=== PATIENT | female | born 1945 | race American Indian/Alaskan Native ===

== ENCOUNTER 2018-01-18 09:13 | Outpatient (CLI) | payer MEDICARE ==
--- NOTE | 2018-01-18 12:13 | Mammography Report ---
Bilateral diagnostic mammogram followed by sonogram left breast: Compared to 01/16/17 and 01/14/16. CAD study utilized. 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 Pain left breast. Findings: Heterogeneous breast parenchyma bilaterally. Left breast smaller compared to right status post previous surgery. Scattered benign calcifications. There is slight increase in skin thickening noted at the site of biopsy. No significant change in the scar tissue. There is a new circumscribed density identified in the left axilla adjacent to the scar. No microcalcifications of the breast parenchyma. Sonographic examination reveals irregular hypoechoic area of breast tissue with acoustic shadowing at 11:00 position 7 cm from nipple measuring 0.5 cm in transverse diameter. At the left axilla benign appearing lymph node noted measuring 1.1 cm in diameter. Impression: Hypoechoic area with acoustic shadowing left breast 11:00 position highly suspicious of a neoplasm. Focal new 3 mm dense asymmetry left lower axilla indeterminate. With history of left breast cancer recommend MRI study first before biopsy of hypoechoic area. BI-RADS CATEGORY: 4 = Suspicious ACR BI-RADS MAMMOGRAPHIC CODES: 0 = Needs additional imaging evaluation; 1 = Negative; 2 = Benign; 3 = Probably benign; 4 = Suspicious; 5 = Malignant; 6 = Known biopsy-proven malignancy COMMENT: 1. Dense breast tissue, i.e., adenosis, fibrocystic changes, etc., may obscure an underlying neoplasm. 2. Approximately 10% of cancers are not detected with mammography. 3. A negative mammography report should not delay biopsy if a clinically suspicious mass is present. COMMENT: Patient follow-up letters are generated in [employer]. Stacia BRICE was informed of the findings at 12:02 PM on 01/18/18.
== END 2018-01-18 09:14 | disposition home or self-care (01) ==
LOC: SPVWC 09:13
PROVIDERS: ATTEND Internal Medicine Hematology & Oncology
DX: C50.412 Malignant neoplasm of upper-outer quadrant of left female breast (principal); R92.1 Mammographic calcification found on diagnostic imaging of breast; Z85.3 Personal history of malignant neoplasm of breast
CPT/HCPCS: 77066

== ENCOUNTER 2019-01-19 10:32 | Outpatient (CLI) | payer MEDICARE ==
--- NOTE | 2019-01-19 15:49 | Mammography Report ---
BILATERAL DIGITAL SCREENING MAMMOGRAM WITH CAD: 01/19/19 10:32:00 CLINICAL: Routine screening.Breast cancer survivor status post left partial mastectomy with radiation therapy. She has a history of left breast pain. COMPARISON:01/18/18 screening mammogram and 02/05/18 breast MRI FINDINGS: The breasts are heterogeneously dense, which may obscure small masses. The left breast is smaller than the right Stable left upper outer postsurgical scar. Bilateral benign calcifications. No mass, suspicious architectural distortion or suspicious calcifications. IMPRESSION: No mammographic evidence of malignancy. BI-RADS CATEGORY: 2 -- Benign RECOMMENDATION: Routine mammographic screening in one year. COMMENT: Patient follow-up letters are generated via our [employer] application.
== END 2019-01-19 10:33 | disposition home or self-care (01) ==
LOC: SPVWC 10:32
PROVIDERS: ATTEND Internal Medicine Hematology & Oncology
DX: Z12.31 Encounter for screening mammogram for malignant neoplasm of breast (principal)
CPT/HCPCS: 77067

== ENCOUNTER 2019-10-04 12:49 | Outpatient (CLI) | payer MEDICARE ==
--- NOTE | 2019-10-04 14:13 | Ultrasound Report ---
LEFT DIGITAL DIAGNOSTIC MAMMOGRAM WITH CAD -- 10/04/2019 LEFT COMPLETE BREAST ULTRASOUND INDICATION: History of left breast cancer status post partial mastectomy and radiation therapy. Chron ic left breast pain. TECHNIQUE: Digital left mammographic imaging was performed. This examination was interpreted with michelle argueta benefit of Computer-Aided Detection (CAD) analysis. COMPARISON: 01/19/2019 FINDINGS: Breast Density: The breasts are heterogeneously dense, which may obscure small masses. MAMMOGRAPHIC FINDINGS: There is no evidence of dominant mass, suspicious calcifications or architectu ral distortion in either breast. Full upper benign postsurgical scar. Stable skin thickening of the b reast. ULTRASOUND FINDINGS: Complete sonographic evaluation of all 4 quadrants and retroareolar region was p erformed. No mass, cyst or suspicious shadowing. IMPRESSION: Negative mammogram and negative left breast ultrasound. No explanation for pain. Follow up recommendation: Routine yearly BI-RADS Category 2: Benign. A "normal" or negative report should not discourage follow up or biopsy of a clinically significant f inding. A written summary of these findings will be mailed to the patient. The patient will be entered into a mammography reporting system which will generate a reminder letter for the patient's next appointmen t at the appropriate interval. According to the [employer], yearly mammograms are recommended starting at age 40 and continuing as long as a woman is in good health. Breast MRI is recommended for women with an jen roximately 20-25% or greater lifetime risk of breast cancer, including women with a strong family his tory of breast or ovarian cancer and women who have been treated for Hodgkin's disease. Signer Name: Marco A Wilson MD Signed: 10/04/2019 2:08 PM Workstation Name: [id number]
== END 2019-10-04 12:50 | disposition home or self-care (01) ==
LOC: SPVWC 12:49
PROVIDERS: ATTEND Internal Medicine Hematology & Oncology
DX: C50.412 Malignant neoplasm of upper-outer quadrant of left female breast (principal); R52 Pain, unspecified

== ENCOUNTER 2020-08-14 09:51 | Outpatient (CLI) | payer MEDICARE | END 2020-08-14 09:52 | disposition home or self-care (01) | LOC: SPVWC 09:51 | PROVIDERS: ATTEND Internal Medicine Hematology & Oncology | DX: C50.412 Malignant neoplasm of upper-outer quadrant of left female breast (principal); R52 Pain, unspecified | CPT/HCPCS: 77066 ==

== ENCOUNTER 2021-09-03 10:11 | Outpatient (CLI) | payer MEDICARE ==
--- NOTE | 2021-09-03 18:38 | Mammography Report ---
DIGITAL SCREENING MAMMOGRAM WITH CAD, 09/03/2021 CLINICAL INFORMATION / INDICATION: Routine screening mammography. TECHNIQUE: Digital bilateral 2D mammography was obtained in the craniocaudal and mediolateral obliqu e projections. This examination was interpreted with the benefit of Computer-Aided Detection analysis . COMPARISON: 01/16/2017, 01/19/2019 FINDINGS: Breast Density: The breasts are heterogeneously dense, which may obscure small masses. No dominant mass, suspicious calcifications, or architectural distortion in either breast. Postlumpectomy and radiation change again noted in the left breast. Overall, no significant interval change in the appearance of the mammogram. IMPRESSION: No mammographic evidence of malignancy. Follow up recommendation: Routine yearly BI-RADS Category 2: Benign. A "normal" or negative report should not discourage follow up or biopsy of a clinically significant f inding. A written summary of these findings will be mailed to the patient. The patient will be entered into a mammography reporting system which will generate a reminder letter for the patient's next appointmen t at the appropriate interval. The [employer] recommends yearly mammograms starting at age 40 and continuing as l rich as a woman is in good health. Breast MRI is recommended for women with an approximate 20-25% or greater lifetime risk of breast cancer, including women with a strong family history of breast or ova more cancer or who have been treated for Hodgkin's disease. Signer Name: Kathia Cox MD Signed: 09/03/2021 6:33 PM Workstation Name: [id number]
== END 2021-09-03 10:12 | disposition home or self-care (01) ==
LOC: SPVWC 10:11
PROVIDERS: ATTEND Internal Medicine Hematology & Oncology
DX: Z12.31 Encounter for screening mammogram for malignant neoplasm of breast (principal)
CPT/HCPCS: 77067

== ENCOUNTER 2021-12-17 09:37 | Outpatient (CLI) | payer MEDICARE ==
--- NOTE | 2021-12-17 14:44 | Mammography Report ---
LEFT DIGITAL DIAGNOSTIC MAMMOGRAM WITH CAD CONVENTIONAL, 12/17/2021 LEFT LIMITED BREAST ULTRASOUND CLINICAL INFORMATION / INDICATION: Pain LT BRST SOFT TISSUE PAIN/LT AXILLA NODULE TECHNIQUE: Digital left mammographic imaging was performed. Limited ultrasound was performed. This ex amination was interpreted with the benefit of Computer-Aided Detection (CAD) analysis. COMPARISON: September 03, 2021, August 14, 2020 FINDINGS: Breast Density: The breasts are heterogeneously dense, which may obscure small masses. MAMMOGRAPHIC FINDINGS: No dominant mass, suspicious calcifications, or architectural distortion in th e left breast. Specifically a BB was placed at the 4:00 position of the left breast, 6 cm from the ni pple (area of ultrasound abnormality) and there is no suspicious mass corresponding to the area of ul trasound abnormality. There is however a dense calcification, likely contributing to the ultrasound a bnormality. ULTRASOUND FINDINGS: Targeted ultrasound evaluation was performed of the area of interest. Ultrasou nd imaging of the left breast at the 4:00 position, 6 cm from the nipple demonstrates a focal area of posterior acoustic shadowing which is likely secondary to dense calcification. Additional ultrasound imaging through the left breast in the areas of pain (12 to 3:00 position) demonstrates normal fibro glandular tissue without evidence of mass, focal fluid collection or architectural distortion. IMPRESSION: No mammographic or sonographic evidence of malignancy. Follow up recommendation: Routine yearly BI-RADS Category 2: BENIGN. A "normal" or negative report should not discourage follow up or biopsy of a clinically significant f inding. A written summary of these findings will be mailed to the patient. The patient will be entered into a mammography reporting system which will generate a reminder letter for the patient's next appointmen t at the appropriate interval. According to the [employer], yearly mammograms are recommended starting at age 40 and continuing as long as a woman is in good health. Breast MRI is recommended for women with an jen roximately 20-25% or greater lifetime risk of breast cancer, including women with a strong family his tory of breast or ovarian cancer and women who have been treated for Hodgkin's disease. Signer Name: Neil Montalvo DO Signed: 12/17/2021 2:39 PM Workstation Name: [id number]
== END 2021-12-17 09:38 | disposition home or self-care (01) ==
LOC: SPVWC 09:37
PROVIDERS: ATTEND Internal Medicine Hematology & Oncology
DX: C50.412 Malignant neoplasm of upper-outer quadrant of left female breast (principal); R52 Pain, unspecified; N64.89 Other specified disorders of breast